=== PATIENT | male | born 1980 ===

== ENCOUNTER 2017-04-02 16:48 | Emergency (ER) | payer OTHER, SELFPAY ==
[2017-04-02 17:15] VITALS: BP 143/75; PULSE 75; RESP 20; TEMP 98; O2SAT 99
[2017-04-02 18:01] LABS: BASO # 0.1 K/uL (0.0-0.2); BASO % 0.7 % (0.0-2.0); EOS # 0.1 K/uL (0.0-0.7); EOS % 1.6 % (0.0-4.0); HEMATOCRIT 46.6 % (35.0-51.0); LYMPH % 23.2 % (20.0-40.0); MEAN CELL VOLUME 87.7 fl (80.0-94.0); MEAN CORPUSCULAR HEMOGLOBIN 29.6 pg (27.0-31.0); MEAN CORPUSCULAR HGB CONC 33.8 g/dL (33.0-37.0); MEAN PLATELET VOLUME 11.1 fl (7.2-11.7); MONO # 0.5 K/uL (0.0-0.8); MONO % 5.5 % (0.0-10.0); NEUT # 5.9 K/uL (1.8-7.0); NRBC % 0.2 % (0.0-0.0); RED CELL DISTRIBUTION WIDTH 13.1 % (11.5-14.5); WHITE BLOOD COUNT 8.6 K/uL (4.8-10.8)
[2017-04-02 18:23] LABS: ALB/GLOB RATIO 1.3 (1.0-2.1); ALKALINE PHOSPHATASE 46 U/L (38-126); ALT/SGPT 125 U/L (21-72); AST/SGOT 60 U/L (17-59); BILIRUBIN,TOTAL 1.3 mg/dl (0.2-1.3); BLOOD UREA NITROGEN 11 mg/dl (9-20); CALCIUM 9.1 mg/dL (8.4-10.2); CARBON DIOXIDE 29 mmol/L (22-30); CHLORIDE 101 mmol/L (98-107); GFR AFRICAN-AMERICAN > 60; GLUCOSE,RANDOM 100 mg/dL (75-110); POTASSIUM 3.9 MMOL/L (3.6-5.0); SODIUM 140 mmol/l (132-148)
[2017-04-02 18:31] LABS: RBC URINE 1 /hpf (0-3); URINE BACTERIA FEW (<OCC); URINE BILIRUBIN NEGATIVE (NEGATIVE); URINE BLOOD NEGATIVE (NEGATIVE); URINE COLOR YELLOW (YELLOW); URINE GLUCOSE (UA) NEG (Normal); URINE KETONE NEGATIVE (NEGATIVE); URINE LEUKOCYTE ESTERASE NEG Leu/uL (Negative); URINE PROTEIN NEGATIVE (NEGATIVE); URINE UROBILINOGEN 0.2-1.0 mg/dL (0.2-1.0); WBC URINE 1 /hpf (0-5)
--- NOTE | 2017-04-02 18:31 | RAD ---
HISTORY: left sided chest pressure last night COMPARISON: 12/05/2011. TECHNIQUE: Chest PA and lateral FINDINGS: LUNGS: No active pulmonary disease. PLEURA: No significant pleural effusion identified. No pneumothorax apparent. CARDIOVASCULAR: Normal. OSSEOUS STRUCTURES: No significant abnormalities. VISUALIZED UPPER ABDOMEN: Normal. OTHER FINDINGS: None. IMPRESSION: No active disease. No significant interval change compared to the prior examination(s).
[2017-04-02] MEDS ORDERED: Iohexol 300 100 ML IJ ONE (18:32)
[2017-04-02] MEDS ORDERED: Sodium Chloride 0.9% 50 ML IV ONE (18:33)
--- NOTE | 2017-04-02 18:57 | ED PDOC ---
HPI: Abdomen Time Seen by Provider: 04/02/17 17:09 Chief Complaint (Nursing): Abdominal Pain Chief Complaint (Provider): Left lower abdominal pain x 2 days History Per: Patient History/Exam Limitations: no limitations Onset/Duration Of Symptoms: Days Outside of [place] travel?: No Current Symptoms Are (Timing): Still Present Severity: Moderate Pain Scale Rating Of: 6 Location Of Pain/Discomfort: LLQ Quality Of Discomfort: Sharp Associated Symptoms: Urinary Symptoms. denies: Fever, Chills, Nausea, Vomiting , Diarrhea, Loss Of Appetite, Back Pain, Chest Pain, Constipation Additional Complaint(s): LLQ pain for 2 days without N/V/D. No similar in the past. Pt also reports mild dysuria. Pt states he is only sexually active with and no anal intercourse. PT also reports chest pressure last night without SOB but denies pain now. States he has had the pressure, left side several times in the past and has been seen in the ER but has not follow-up with esthetician/skin therapist. Past Medical History Reviewed: Historical Data, Nursing Documentation, Vital Signs Vital Signs: Last Vital Signs Temp 98.0 F 04/02/17 17:12 Pulse 75 04/02/17 17:12 Resp 20 04/02/17 17:12 BP 143/75 04/02/17 17:12 Pulse Ox 99 04/02/17 17:12 - Medical History PMH: No Chronic Diseases - Surgical History Surgical History: No Surg Hx - Family History Family History: States: Unknown Family Hx - Living Arrangements Living Arrangements: With Family - Social History Current smoker - smoking cessation education provided: No Alcohol: Occasional Drugs: Denies - Home Medications Home Medications: Ambulatory Orders Medication Instructions Recorded Acetaminophen with Codeine 1 tab PO Q6H PRN #15 tab 04/02/17 [Tylenol with Codeine No. 3 300 mg-30 mg] Ciprofloxacin [Cipro] 500 mg PO BID #20 tab 04/02/17 metroNIDAZOLE [Flagyl] 500 mg PO TID #30 tab 04/02/17 - Allergies Allergies/Adverse Reactions: Allergies Allergy/AdvReac Type Severity Reaction Status Date / Time No Known Allergies Allergy Verified 04/02/17 17:10 Review of Systems ROS Statement: Except As Marked, All Systems Reviewed And Found Negative Cardiovascular: Positive for: Chest Pain (Left, pressure - Resolved ) Gastrointestinal: Positive for: Abdominal Pain Physical Exam - Reviewed Nursing Documentation Reviewed: Yes Vital Signs Reviewed: Yes - Physical Exam Appears: Positive for: Well, Non-toxic, No Acute Distress Head Exam: Positive for: ATRAUMATIC, NORMAL INSPECTION, NORMOCEPHALIC Skin: Positive for: Normal Color, Warm, DRY Eye Exam: Positive for: Normal appearance ENT: Positive for: Normal ENT Inspection Neck: Positive for: Normal, Painless ROM Cardiovascular/Chest: Positive for: Regular Rate, Rhythm Respiratory: Positive for: CNT, Normal Breath Sounds Gastrointestinal/Abdominal: Positive for: Bowel Sounds, Soft, Tenderness (LLQ). Negative for: Normal Exam Back: Positive for: Normal Inspection Extremity: Positive for: Normal ROM Neurologic/Psych: Positive for: Alert, Oriented - Laboratory Results Result Diagrams: 04/02/17 17:51 04/02/17 17:51 - ECG O2 Sat by Pulse Oximetry: 99 Pulse Ox Interpretation: Normal Medical Decision Making Medical Decision Making: CXR - Normal. Disposition - Clinical Impression Clinical Impression: Epiploic appendagitis - Patient ED Disposition Is Patient to be Admitted: No Counseled Patient/Family Regarding: Diagnosis, Need For Followup, Rx Given - Disposition Referrals: Keshawn Mars MD [Staff Provider] - Disposition: Routine/Home Disposition Time: 19:37 Condition: GOOD Prescriptions: Acetaminophen with Codeine [Tylenol with Codeine No. 3 300 mg-30 mg] 1 tab PO Q6H PRN #15 tab PRN Reason: Pain, Severe (8-10) Ciprofloxacin [Cipro] 500 mg PO BID #20 tab metroNIDAZOLE [Flagyl] 500 mg PO TID #30 tab Instructions: Infectious Colitis (ED)
--- NOTE | 2017-04-03 08:32 | CT ---
PROCEDURE: CT Abdomen and Pelvis with contrast HISTORY: LLQ pain COMPARISON: None. TECHNIQUE: Contrast dose: Radiation dose: Total exam DLP = mGy-cm. This CT exam was performed using one or more of the following dose reduction techniques: Automated exposure control, adjustment of the mA and/or kV according to patient size, and/or use of iterative reconstruction technique. FINDINGS: LOWER THORAX: Unremarkable. LIVER: Fatty liver. No gross lesion or ductal dilatation. GALLBLADDER AND BILE DUCTS: Unremarkable. PANCREAS: Unremarkable. No gross lesion or ductal dilatation. SPLEEN: Unremarkable. ADRENALS: Unremarkable. No mass. KIDNEYS AND URETERS: Unremarkable. No hydronephrosis. No solid mass. VASCULATURE: Unremarkable. No aortic aneurysm. BOWEL: Pericolonic fat infiltration along the descending colon compatible with acute diverticulitis. No abscess or pneumoperitoneum.. No obstruction. No gross mural thickening. APPENDIX: Normal appendix. PERITONEUM: Unremarkable. No free fluid. No free air. LYMPH NODES: Unremarkable. No enlarged lymph nodes. BLADDER: Unremarkable. REPRODUCTIVE: Unremarkable. BONES: No acute fracture. OTHER FINDINGS: None. IMPRESSION: Pericolonic fat infiltration along the descending colon compatible with acute diverticulitis. No abscess or pneumoperitoneum.
--- NOTE | 2017-04-03 16:16 | CARD ---
APPROVED REPORT EKG Measurement Heart [id number] <Conclusion> Normal sinus rhythm Normal ECG
== END 2017-04-02 20:10 | disposition home or self-care (01) ==
LOC: H.ER 16:48
DX: A09 Infectious gastroenteritis and colitis, unspecified (principal); R07.89 Other chest pain; R10.32 Left lower quadrant pain

== ENCOUNTER 2017-08-23 06:51 | Emergency (ER) | payer OTHER, SELFPAY ==
[2017-08-23 07:14] VITALS: BP 128/82; PULSE 72; RESP 18; TEMP 98.2; O2SAT 99
--- NOTE | 2017-08-23 07:33 | ED PDOC ---
Lower Extremity Pain/Injury Time Seen by Provider: 08/23/17 07:18 Chief Complaint (Nursing): Lower Extremity Problem/Injury Chief Complaint (Provider): Left Ankle Injury History Per: Patient History/Exam Limitations: no limitations Onset/Duration Of Symptoms: Days (x1) Current Symptoms Are (Timing): Still Present Additional Complaint(s): Theo Yu is a 37 year old male presenting to the ED for an evaluation of a left ankle injury occurring yesterday while at work. The patient states he fell off of a truck and landed on his left foot causing shooting pain to the area. He states applying ice to the injured area yesterday and has taken Tylenol 500 mg 2 tablets with minor relief. The patient states he also injured his right shoulder, but does not feel pain to the area. He denies any other medical problems. PMD: No PMD Past Medical History Reviewed: Historical Data, Nursing Documentation, Vital Signs Vital Signs: Last Vital Signs Temp 98.2 F 08/23/17 07:04 Pulse 72 08/23/17 07:04 Resp 18 08/23/17 07:04 BP 128/82 08/23/17 07:04 Pulse Ox 99 08/23/17 07:04 - Medical History PMH: No Chronic Diseases - Family History Family History: States: Unknown Family Hx - Home Medications Home Medications: Ambulatory Orders Medication Instructions Recorded Acetaminophen with Codeine 1 tab PO Q6H PRN #15 tab 04/02/17 [Tylenol with Codeine No. 3 300 mg-30 mg] Ciprofloxacin [Cipro] 500 mg PO BID #20 tab 04/02/17 metroNIDAZOLE [Flagyl] 500 mg PO TID #30 tab 04/02/17 Ibuprofen [Motrin] 600 mg PO Q6 PRN #15 tab 08/23/17 - Allergies Allergies/Adverse Reactions: Allergies Allergy/AdvReac Type Severity Reaction Status Date / Time No Known Allergies Allergy Verified 08/23/17 07:04 Review of Systems ROS Statement: Except As Marked, All Systems Reviewed And Found Negative Musculoskeletal: Positive for: Foot Pain (pain to left ankle). Negative for: Shoulder Pain Physical Exam - Reviewed Nursing Documentation Reviewed: Yes Vital Signs Reviewed: Yes - Physical Exam Appears: Positive for: Non-toxic, No Acute Distress (comfortable) Head Exam: Positive for: ATRAUMATIC, NORMOCEPHALIC Eye Exam: Positive for: Normal appearance, EOMI Cardiovascular/Chest: Positive for: Regular Rate, Rhythm Respiratory: Negative for: Respiratory Distress Extremity: Positive for: Normal ROM (to left foot), Tenderness (to left lateral malleolus), Swelling (mild swelling to left lateral malleolus). Negative for: Deformity (and no erythema to left foot ) Neurologic/Psych: Positive for: Alert, Oriented - ECG O2 Sat by Pulse Oximetry: 99 (RA) Pulse Ox Interpretation: Normal Medical Decision Making Medical Decision Making: Time: 07:18 Impression: Left ankle sprain rule out fracture Plan: * [RAD] Ankle AP LAT Post Left * Reevaluation 08:08 Xray: no acute findings. Scribe Attestation: Documented by Mimi Guerrero, acting as a scribe for Beka Zarate MD. Provider Scribe Attestation: All medical record entries made by the Scribe were at my direction and personally dictated by me. I have reviewed the chart and agree that the record accurately reflects my personal performance of the history, physical exam, medical decision making, and the department course for this patient. I have also personally directed, reviewed, and agree with the discharge instructions and disposition. [facility] Ankle Rules - Malleolar zone tenderness? Posterior edge or tip of lateral malleolus: Yes Posterior edge or tip of medial malleolus: No Inability to bear weight both immediately and in the ED: No - Midfoot zone tenderness? Base of 5th Metatarsal: No Navicular: No Inability to bear weight both immediately and in the ED: No - XRAY INDICATED Is an ankle x-ray indicated based on findings?: Yes Disposition - Clinical Impression Clinical Impression: Left ankle sprain - Patient ED Disposition Is Patient to be Admitted: No Doctor Will See Patient In The: Office Counseled Patient/Family Regarding: Studies Performed, Diagnosis, Need For Followup - Disposition Referrals: Podiatry Clinic [Outside] Disposition: Routine/Home Disposition Time: 08:12 Condition: GOOD Additional Instructions: Take advil or motrin for pain. Apply ice for 1 day. Follow up with podiatry if pain is persistent. Prescriptions: Ibuprofen [Motrin] 600 mg PO Q6 PRN #15 tab PRN Reason: Pain, Moderate (4-7) Instructions: Ankle Sprain (ED) Forms: [facility] ED School/Work Excuse
--- NOTE | 2017-08-23 13:00 | RAD ---
PROCEDURE: Left Ankle Radiographs, two views. HISTORY: ankle pain injury COMPARISON: None available. FINDINGS: BONES: No acute displaced fracture. JOINTS: No dislocation. SOFT TISSUES: Mild soft tissue swelling. No evidence of radiopaque foreign body. OTHER FINDINGS: None. IMPRESSION: Mild soft tissue swelling. No acute displaced fracture, dislocation, or significant joint effusion identified. If symptoms persist or if there is clinical concern, x-ray follow-up in 7-10 days should be considered.
== END 2017-08-23 08:26 | disposition home or self-care (01) ==
LOC: H.ER 06:51
DX: S93.402A Sprain of unspecified ligament of left ankle, initial encounter (principal); V89.9XXA Person injured in unspecified vehicle accident, initial encounter; Y99.0 Civilian activity done for income or pay